=== PATIENT | male | born 1975 | race American Indian/Alaskan Native ===

== ENCOUNTER 2017-10-13 17:47 | Emergency (ER) | payer SELFPAY ==
[2017-10-13 18:09] VITALS: BP 132/84
[2017-10-13] MEDS ORDERED: VEETIDS PO ONE (20:29)
[2017-10-13] MEDS ORDERED: DECADRON IM ONE (20:29)
--- NOTE | 2017-10-13 20:34 | Emergency Department Report ---
ED ENT HPI - General Chief complaint: Dental/Oral Stated complaint: SEVERE MOUTH INFECTION LUMP ON RT CHEEK Time Seen by Provider: 10/13/17 20:25 Source: patient Mode of arrival: Ambulatory Limitations: No Limitations - History of Present Illness MD complaint: tooth pain, other (neck swelling) -: week(s) (several weeks worse over the last 2 days) Location: tooth # (31-32) Severity: moderate Worsens with: swallowing - Related Data Previous Rx's Medication Instructions Recorded Last Taken Type HYDROcodone/APAP 5-325 [[place] 1 each PO Q6HR PRN #15 tablet 10/13/17 Unknown Rx 5/325] Penicillin V Potassium 500 mg PO QID 10 Days #40 tablet 10/13/17 Unknown Rx Allergies Allergy/AdvReac Type Severity Reaction Status Date / Time No Known Allergies Allergy Unverified 10/13/17 18:10 ED Dental HPI - General Chief complaint: Dental/Oral Stated complaint: SEVERE MOUTH INFECTION LUMP ON RT CHEEK Time Seen by Provider: 10/13/17 20:25 Source: patient Mode of arrival: Ambulatory Limitations: No Limitations - Related Data Previous Rx's Medication Instructions Recorded Last Taken Type HYDROcodone/APAP 5-325 [[place] 1 each PO Q6HR PRN #15 tablet 10/13/17 Unknown Rx 5/325] Penicillin V Potassium 500 mg PO QID 10 Days #40 tablet 10/13/17 Unknown Rx Allergies Allergy/AdvReac Type Severity Reaction Status Date / Time No Known Allergies Allergy Unverified 10/13/17 18:10 ED Review of Systems ROS: Stated complaint: SEVERE MOUTH INFECTION LUMP ON RT CHEEK Other details as noted in HPI Constitutional: denies: fever ENT: throat pain. denies: ear pain Respiratory: denies: cough Cardiovascular: denies: chest pain ED Past Medical Hx - Past Medical History Previous Medical History?: No - Surgical History Past Surgical History?: No - Social History Smoking Status: Current Every Day Smoker Substance Use Type: None - Medications Home Medications: Home Medications Medication Instructions Recorded Confirmed Last Taken Type HYDROcodone/APAP 5-325 [[place] 1 each PO Q6HR PRN #15 tablet 10/13/17 Unknown Rx 5/325] Penicillin V Potassium 500 mg PO QID 10 Days #40 tablet 10/13/17 Unknown Rx ED Physical Exam - General Limitations: No Limitations General appearance: alert, in no apparent distress - Head Head exam: Present: atraumatic, normocephalic - Eye Eye exam: Present: normal appearance. Absent: scleral icterus, conjunctival injection - ENT ENT exam: Present: other (mild edema and tenderness teeth #31-32 with decay, normal tongue size) - Neck Neck exam: Present: tenderness, lymphadenopathy, other (3 cm after swellilng just under right submandibular region). Absent: meningismus - Respiratory Respiratory exam: Absent: respiratory distress, wheezes, rales, rhonchi, stridor - Psychiatric Psychiatric exam: Present: normal affect - Skin Skin exam: Present: warm, dry, intact, normal color ED Course Vital Signs 10/13/17 18:07 Temperature 98.7 F Pulse Rate 80 Respiratory 16 Rate Blood Pressure 132/84 O2 Sat by Pulse 99 Oximetry ED Medical Decision Making - Medical Decision Making Mr. High presents with odontogenic tooth infection with mild submandibular swelling tendernes. No indication of Saurav's or airway compromise. PRescribed PCN and [place] Critical care attestation.: If time is entered above; I have spent that time in minutes in the direct care of this critically ill patient, excluding procedure time. ED Disposition Clinical Impression: Infected dental caries Disposition: TO HOME OR SELFCARE Is pt being admited?: No Does the pt Need Aspirin: No Condition: Stable Instructions: Dental Abscess (ED) Prescriptions: HYDROcodone/APAP 5-325 [[place] 5/325] 1 each PO Q6HR PRN #15 tablet PRN Reason: Pain Penicillin V Potassium 500 mg PO QID 10 Days #40 tablet Referrals: PRIMARY CARE, [Primary Care Provider] - 3-5 Days Time of Disposition: 20:35
== END 2017-10-13 21:12 | disposition home or self-care (01) ==
LOC: ED 17:47
DX: K02.9 Dental caries, unspecified (principal); F17.200 Nicotine dependence, unspecified, uncomplicated
CPT/HCPCS: 96372; 99282; J1100

== ENCOUNTER 2018-11-04 21:51 | Emergency (ER) | payer SELFPAY ==
[2018-11-04 22:27] VITALS: BP 149/89
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
[2018-11-05] MEDS ORDERED: NORCO 5/325 PO ONE (01:09)
[2018-11-05] MEDS ORDERED: ZOFRAN ODT PO ONE (01:09)
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
== END 2018-11-05 01:33 | disposition home or self-care (01) ==
LOC: ED 21:51
DX: S16.1XXA Strain of muscle, fascia and tendon at neck level, initial encounter (principal); M54.9 Dorsalgia, unspecified; F17.200 Nicotine dependence, unspecified, uncomplicated; V49.49XA Driver injured in collision with other motor vehicles in traffic accident, initial encounter; Y93.89 Activity, other specified; Y92.410 Unspecified street and highway as the place of occurrence of the external cause; Y99.8 Other external cause status
CPT/HCPCS: 72070; Q0162

== ENCOUNTER 2019-03-28 03:06 | Emergency (ER) | payer OTHER ==
[2019-03-28 03:19] VITALS: BP 153/93
[2019-03-28] MEDS ORDERED: TETANUS,DIPH,PERTUSS(ACELL) VACCINE 0.5 ML SYRINGE IM ONE (05:43)
--- NOTE | 2019-03-28 05:43 | Emergency Department Report ---
- General Chief complaint: Skin/Abscess/Foreign Body Stated complaint: BITE ON SHOULDER Time Seen by Provider: 03/28/19 05:34 Source: patient Mode of arrival: Ambulatory Limitations: No Limitations - History of Present Illness Initial comments: Patient is a 43-year-old male presents emergency room with complaints of a spider bite to the right shoulder that occurred yesterday. He did not see what bit him. He states he felt a pinching sensation. He denies any drainage, fever, nausea, vomiting, numbness, weakness. He is unsure of his last tetanus immunization. He denies any past medical history, daily medications, allergies medications - Related Data Previous Rx's Medication Instructions Recorded Last Taken Type HYDROcodone/APAP 5-325 [[place] 1 each PO Q6HR PRN #15 tablet 10/13/17 Unknown Rx 5/325] Penicillin V Potassium 500 mg PO QID 10 Days #40 tablet 10/13/17 Unknown Rx Cyclobenzaprine HCl [Flexeril 5 MG 5 mg PO BID PRN #10 tab 11/05/18 Unknown Rx TAB] HYDROcodone/APAP 5-325 [[place] 1 each PO Q6HR PRN #12 tablet 11/05/18 Unknown Rx 5/325] Naproxen [Naprosyn] 500 mg PO BID PRN #20 tablet 11/05/18 Unknown Rx predniSONE [Deltasone] 20 mg PO DAILY #15 tablet 11/05/18 Unknown Rx Sulfamethoxazole/Trimethoprim 1 each PO BID 7 Days #14 tablet 03/28/19 Unknown Rx [Bactrim DS TAB] Allergies Allergy/AdvReac Type Severity Reaction Status Date / Time No Known Allergies Allergy Verified 11/04/18 22:26 Abscess Boil HPI - HPI Chief Complaint: Skin/Abscess/Foreign Body Stated Complaint: BITE ON SHOULDER Time Seen by Provider: 03/28/19 05:34 Home Medications: Previous Rx's Medication Instructions Recorded Last Taken Type HYDROcodone/APAP 5-325 [[place] 1 each PO Q6HR PRN #15 tablet 10/13/17 Unknown Rx 5/325] Penicillin V Potassium 500 mg PO QID 10 Days #40 tablet 10/13/17 Unknown Rx Cyclobenzaprine HCl [Flexeril 5 MG 5 mg PO BID PRN #10 tab 11/05/18 Unknown Rx TAB] HYDROcodone/APAP 5-325 [[place] 1 each PO Q6HR PRN #12 tablet 11/05/18 Unknown Rx 5/325] Naproxen [Naprosyn] 500 mg PO BID PRN #20 tablet 11/05/18 Unknown Rx predniSONE [Deltasone] 20 mg PO DAILY #15 tablet 11/05/18 Unknown Rx Sulfamethoxazole/Trimethoprim 1 each PO BID 7 Days #14 tablet 03/28/19 Unknown Rx [Bactrim DS TAB] Allergies/Adverse Reactions: Allergies Allergy/AdvReac Type Severity Reaction Status Date / Time No Known Allergies Allergy Verified 11/04/18 22:26 ED Review of Systems ROS: Stated complaint: BITE ON SHOULDER Other details as noted in HPI Comment: All other systems reviewed and negative ED Past Medical Hx - Past Medical History Previous Medical History?: No - Surgical History Past Surgical History?: No - Social History Smoking Status: Light Tobacco Smoker Substance Use Type: Alcohol - Medications Home Medications: Home Medications Medication Instructions Recorded Confirmed Last Taken Type HYDROcodone/APAP 5-325 [[place] 1 each PO Q6HR PRN #15 tablet 10/13/17 Unknown Rx 5/325] Penicillin V Potassium 500 mg PO QID 10 Days #40 tablet 10/13/17 Unknown Rx Cyclobenzaprine HCl [Flexeril 5 MG 5 mg PO BID PRN #10 tab 11/05/18 Unknown Rx TAB] HYDROcodone/APAP 5-325 [[place] 1 each PO Q6HR PRN #12 tablet 11/05/18 Unknown Rx 5/325] Naproxen [Naprosyn] 500 mg PO BID PRN #20 tablet 11/05/18 Unknown Rx predniSONE [Deltasone] 20 mg PO DAILY #15 tablet 11/05/18 Unknown Rx Sulfamethoxazole/Trimethoprim 1 each PO BID 7 Days #14 tablet 03/28/19 Unknown Rx [Bactrim DS TAB] ED Physical Exam - General Limitations: No Limitations General appearance: alert, in no apparent distress - Head Head exam: Present: atraumatic, normocephalic - Eye Eye exam: Present: normal appearance - ENT ENT exam: Present: mucous membranes moist - Neurological Exam Neurological exam: Present: alert, oriented X3 - Psychiatric Psychiatric exam: Present: normal affect, normal mood - Skin Skin exam: Present: warm, dry, other (2 cm area of induration to the right shoulder, there is small abrasion/bite like ruiz in the center, there is no necrosis, no drainage, no fluctuance, small amount of erythema, sensation intact) ED Course Vital Signs 03/28/19 03:15 Temperature 97.4 F L Pulse Rate 97 H Respiratory 18 Rate Blood Pressure 153/93 O2 Sat by Pulse 98 Oximetry ED Medical Decision Making - Medical Decision Making Patient is a 43-year-old male presents emergency room with complaints of a spider bite to the right shoulder that occurred yesterday. He did not see what bit him. He states he felt a pinching sensation. He denies any drainage, fever, nausea, vomiting, numbness, weakness. He is unsure of his last tetanus immunization. He denies any past medical history, daily medications, allergies medications. VSS. on exam: 2 cm area of induration to the right shoulder, there is small abrasion/bite like ruiz in the center, there is no necrosis, no drainage, no fluctuance, small amount of erythema, sensation intact. Patient given tetanus immunization. Given prescription for Bactrim for cellulitis. advised pt to please take medication as prescribed to completion. Follow-up with a primary care doctor in the next 2-3 days for reexamination. Return to the emergency room for any new or worsening symptoms or any worsening signs of infection despite antibiotic therapy. - Differential Diagnosis spider bite, insect bite, cellulitis, abscess Critical care attestation.: If time is entered above; I have spent that time in minutes in the direct care of this critically ill patient, excluding procedure time. ED Disposition Clinical Impression: Spider bite Qualifiers: Encounter type: initial encounter Injury intent: accidental or unintentional Qualified Code(s): T63.301A - Toxic effect of unspecified spider venom, accidental (unintentional), initial encounter Cellulitis Qualifiers: Site of cellulitis: extremity Site of cellulitis of extremity: upper extremity Laterality: right Qualified Code(s): L03.113 - Cellulitis of right upper limb Disposition: DC-01 TO HOME OR SELFCARE Is pt being admited?: No Does the pt Need Aspirin: No Condition: Stable Instructions: Cellulitis (ED), Insect Bite or Sting (ED), Diphtheria Tetanus and Pertussis Vaccination (ED) Additional Instructions: Please take medication as prescribed to completion. Follow-up with a primary care doctor in the next 2-3 days for reexamination. Return to the emergency room for any new or worsening symptoms or any worsening signs of infection despite antibiotic therapy. Prescriptions: Sulfamethoxazole/Trimethoprim [Bactrim DS TAB] 1 each PO BID 7 Days #14 tablet Referrals: YUMI CURIEL MD [Staff Physician] - 2-3 Days Time of Disposition: 05:41 Print Language: BELIZEAN
== END 2019-03-28 05:53 | disposition home or self-care (01) ==
LOC: ED 03:06
DX: S40.261A Insect bite (nonvenomous) of right shoulder, initial encounter (principal); L03.113 Cellulitis of right upper limb; F17.200 Nicotine dependence, unspecified, uncomplicated; F10.10 Alcohol abuse, uncomplicated; Z79.899 Other long term (current) drug therapy; W57.XXXA Bitten or stung by nonvenomous insect and other nonvenomous arthropods, initial encounter; Y93.89 Activity, other specified; Y92.89 Other specified places as the place of occurrence of the external cause; Y99.8 Other external cause status
CPT/HCPCS: 90471; 90715